=== PATIENT | female | born 1945 | race Caucasian/White ===

== ENCOUNTER 2021-10-12 11:32 | Outpatient (CLI) | payer MEDICARE, SELFPAY ==
--- NOTE | ~2021-10-12 | XR_ITS ---
EXAMINATION: XR chest 2V DATE: 10/12/2021 13:24 INDICATION: History of hypertension TECHNIQUE: PA and lateral views of the chest are obtained. COMPARISON: None available FINDINGS: Cardiomegaly is noted. There is no pleural effusion or pneumothorax. There are nodular opac ities of the right lung. Median sternotomy wires There is moderate thoracic spondylosis. IMPRESSION: 1. Nodular opacities of the right lung which could be infectious or inflammatory. Further evaluation with CT of the chest is recommended. Reviewed, dictated and finalized at location A. IMPRESSION: 1. Nodular opacities of the right lung which could be infectious or inflammator y. Further evaluation with CT of the chest is recommended.
[2021-10-12 14:06] LABS: Hematocrit 46.6 % (37.0-47.0); Hemoglobin 14.2 g/dL (12.0-15.0); Immature Platelet Fraction Pct 20.4 % (0.9-11.2); Mean Corpuscular HGB Conc 30.5 g/dl (32-36); Mean Corpuscular Hemoglobin 29.1 pg (26-34); Mean Corpuscular Volume 95.5 fl (80-100); Mean Platelet Volume 13.2 fl (7.4-10.4); Platelet Count Result 160 k/mm3 (150-375); Red Blood Count 4.88 M/mm3 (4.2-5.4); Red Cell Distribution Width 13.9 % (11.5-14.5); White Blood Count 11.9 K/mm3 (4.5-10.0)
[2021-10-12 14:16] LABS: Bilirubin Urine 1+ (Negative); Blood Urine Negative (Negative); Color Urine Yellow (Yellow); Glucose Urine UA Negative (Negative); INR 1.1; Ketones Urine Trace mg/dL (Negative); Leukocyte Esterase Ur 1+ LEU/UL (Negative); Nitrate Urine Negative (Negative); Protein Urine 2+ mg/dL (Negative); Prothrombin Time 13.4 Seconds (11.1-14.7); Specific Grav Ur 1.025 (1.001-1.035)
[2021-10-12 14:17] LABS: Albumin Level 4.3 g/dL (3.5-5.1); Anion Gap 6 mmol/L (8-16); Blood Urea Nitrogen 13 mg/dL (7-17); Calcium 9.4 mg/dL (8.4-10.2); Carbon Dioxide 32 mmol/L (22-30); Chloride 101 mmol/L (98-107); Estimated Glomerular Filt Rate > 60; Glucose 72 mg/dL (65-110); Partial Thromboplastin Time 32.1 SECONDS (22.3-36.8); Sodium 139 mmol/L (137-145)
[2021-10-12 14:23] LABS: Mucus Urine Rare /lpf; Squamous Epithelial Cell Urine Few /hpf (Few); WBC Urine 21-30 /hpf
[2021-10-12 14:26] LABS: Add Urine Microscopic? YES; Appearance Urine Sl Cloudy (Clear)
[2021-10-12 14:44] LABS: Urine Cotinine NEGATIVE
[2021-10-12 15:06] LABS: Hemoglobin A1C 5.9 % (<5.7)
== END 2021-10-12 11:33 | disposition home or self-care (01) ==
LOC: ANHSURGERY 11:42
PROVIDERS: PCP Family Medicine; Visit Provider Specialist
DX: M17.12 Unilateral primary osteoarthritis, left knee (principal); Z01.818 Encounter for other preprocedural examination; R91.8 Other nonspecific abnormal finding of lung field
CPT/HCPCS: 71046; 80048; 80307; 81001; 82040; 83036; 85027; 85055; 85610; 85730; 86850; 86860; 86870; 86880; 86900; 86901; 86902; 86971; 87077; 87081; 87086; 87088

== ENCOUNTER 2021-10-13 10:28 | Outpatient (CLI) | payer MEDICARE, SELFPAY ==
--- NOTE | ~2021-10-13 | CT_ITS ---
EXAMINATION: CT diagnostic chest wo con DATE: 10/13/2021 10:47 INDICATION: Lung nodules TECHNIQUE: Computed tomography (CT) of the chest was performed without intravenous contrast. The dose -length product (DLP) was 693.31 mGy-cm. Automated exposure control and iterative reconstruction tech nique were employed. COMPARISON: None FINDINGS: There are innumerable nodules scattered throughout all lobes of the lungs measuring up to 7 mm. There is a 2.5 cm groundglass nodule of the right upper lobe with an approximately 6 mm solid co mponent. There is no pleural effusion or pneumothorax. Changes of coronary artery bypass grafting are noted. The heart size is normal. No pathologically enlarged thoracic lymph nodes are identified. The re is a mildly enlarged periportal lymph node. IMPRESSION: 1. Innumerable nodules scattered throughout the lungs. Although findings could reflect infection, met astatic disease is considered more likely. Recommend correlation for any history of malignancy. If ab sent, consider further imaging to evaluate for primary malignancy and/or lung nodule biopsy. Reviewed, dictated and finalized at location A. IMPRESSION: 1. Innumerable nodules scattered throughout the lungs. Although findings could reflect infection, metastatic disease is considered more likely. Recommend mykel elation for any history of malignancy. If absent, consider further imaging to e valuate for primary malignancy and/or lung nodule biopsy.
== END 2021-10-13 10:29 | disposition home or self-care (01) ==
PROVIDERS: PCP Family Medicine; Visit Provider Specialist
DX: R07.9 Chest pain, unspecified (principal); R91.8 Other nonspecific abnormal finding of lung field
CPT/HCPCS: 71250

== ENCOUNTER 2021-10-22 00:30 | Day surgery (SDC) | payer MEDICARE, SELFPAY ==
[2021-10-12 11:49] VITALS: BMI 36.0
--- NOTE | 2021-10-12 12:25 | PC.NURSE ---
Report to the Outpatient Waiting Room, entrance under the green pavilion located off [facility], at time ___06____ on date __10/22/21 . OR Time: . - You and your visitor will be asked a series of questions to screen for COVID 19 for your protection. - A mask is required within the hospital. Preoperative COVID Testing Requirements: No COVID Test needed if: (proof is required; if not received patient will have Rapid Test prior to entry) - Patient has received COVID Vaccine at least 14 days prior to procedure date or - Patient has positive COVID test result within last 90 days of surgery date. COVID Test needed if above criteria is not met If not COVID vaccinated a COVID test must be conducted within 72 hours of surgery and patient is asked to isolate self from time of testing until procedure. You will go to the [facility] for your COVID testing. The [facility] site is located at the corner of [address] [facility]. You will only be called if COVID results are positive and your surgeon may reschedule your elective surgery date. Patients may have clear liquids (water, carbonated beverages, clear teas, apple juice) until 3 hours prior to surgery with a maximum of 20 ounces. - No food from midnight until time of surgery - Infants may have breast milk until 4 hours before surgery, formula 6 hours prior to surgery. - Children will be allowed to drink immediately following surgery. If applicable, please bring a bottle or sippy cup to assist with drinking. Juice, water, soda, and popsicles are readily available. For infants on formula, please bring formula the day of surgery. Pacifiers are allowed. Take the following medications with a SIP of water the morning of surgery: __TRELEGY INHALER,ATENOLOL,CITALOPRAM Medications to discontinue per physician _ASPIRIN 7 DAYS PRE OP PER DR LEZAMA,.ALL VITAMINS AND SUPPLEMENTS 3 DAYS PRE OP Date to take last dose_ASPIRIN 10/14/21 AND VITAMINS/SUPPLEMENTS 10/18/21 Please no make-up, nail chilean, hairspray, perfume, deodorant, or body powder the day of surgery. No jewelry (including any body piercings) or valuables the day of surgery, leave them at home. Please take a shower or bath the night before, or the morning of, surgery with an antibacterial soap. Wear comfortable, loose fitting clothing. Children are encouraged to wear pajamas. - Jewelry must be removed prior to entering the operating room. Rings and piercings that are not removed may be cut off. - The hospital will not accept responsibility for valuables. - Please leave all valuables, including medications, at home the day of surgery. If you are going home after surgery, a licensed laborer driver must drive you home. - NO public transportation without another adult. - We recommend that an adult stay with you for 24 hours following discharge. - We also recommend that you do not drive, make important decision, drink alcoholic beverages, or take any drugs that were not prescribed by your health care provider for at least 24 hours after your discharge time. For Pediatric surgeries, we recommend two adults accompany the child home (only one inside the building at this time). One visitor will be allowed to accompany the patient into the hospital. Patients visitor will be instructed to remain with patient at all times or leave the building. We will allow the visitor to come back to the postoperative area when patient is ready. Follow any additional instructions given to you from your surgeon. VERBAL AND WRITTEN instructions given to _PT AND DAUGHTER TESSA and asked if any additional questions and then verbalized understanding. Patient advised to call surgeon office or pre surgery nurse liaison [phone] if any additional questions.
[2021-10-12 13:00] VITALS: BP 170/64; PULSE 61; RESP 18; TEMP 36.6; O2SAT 95
--- NOTE | 2021-10-21 15:21 | WPDANESEPPF ---
Anes - Initial Pre Proc Eval Procedure: Operation Date: 10/22/21 07:30 Proposed Procedures p Left Total Knee Arthroplasty - Silvestre Stacy MD Date/Time: 10/21/21 15:21 Surgeon: Silvestre Stacy MD Pre Op Diagnosis: left knee oa Patient Data Age: 76 Gender: F Height: 1.65 m Weight: 98.2 kg Last Vital Signs Temp 97.9 F 10/12/21 13:00 Pulse 61 10/12/21 13:00 Resp 18 10/12/21 13:00 BP 170/64 H 10/12/21 13:00 Pulse Ox 95 10/12/21 13:00 Allergies Allergy/AdvReac Type Severity Reaction Status Date / Time chlorhexidine Allergy Mild RASH Verified 10/12/21 11:52 Penicillins Allergy Mild RASH Verified 10/12/21 11:52 Sulfa (Sulfonamide Allergy Mild RED SKIN Verified 10/12/21 11:52 Antibiotics) AND EYES Home Medications Medication Instructions Recorded Confirmed Type Multi Vitamin 1 tab-cap PO DAILY 10/12/21 10/22/21 History acetaminophen [Tylenol Extra 500 mg PO Q6H PRN 10/12/21 10/22/21 History Strength] albuterol sulfate [Ventolin HFA] 2 puff INHALATION PRN PRN 10/12/21 10/22/21 History aspirin [Adult Low Dose Aspirin] 81 mg PO DAILY 10/12/21 10/22/21 History atenolol 100 mg PO DAILY 10/12/21 10/22/21 History atorvastatin 80 mg PO DAILY 10/12/21 10/22/21 History citalopram 20 mg PO DAILY 10/12/21 10/22/21 History frgfdofdekf-piuxwgfcn-dyitnlzv 1 inh INHALATION DAILY 10/12/21 10/22/21 History [Trelegy Ellipta] furosemide 40 mg PO PRN PRN 10/12/21 10/22/21 History glimepiride 2 mg PO DAILY 10/12/21 10/22/21 History lisinopril 20 mg PO DAILY 10/12/21 10/22/21 History loratadine [Claritin] 10 mg PO DAILY 10/12/21 10/22/21 History magnesium 400 mg PO DAILY 10/12/21 10/22/21 History metformin 500 mg PO BID 10/12/21 10/22/21 History omega-3 fatty acids [Fish Oil] 1,000 mg PO BID 10/12/21 10/22/21 History potassium chloride 10 meq PO 3XW 10/12/21 10/22/21 History Patient hx anesthesia problems: none Family hx anesthesia problems: none Results Review: All pre-operative results and documents have been reviewed as part of the pre-operative evaluation. [facility] Past Medical History Medical History (Updated 10/21/21 @ 15:20 by Chad Bo MD) Congestive heart failure (CHF) Diabetes Hyperlipidemia Hypertension Surgical History Surgical History (Updated 10/21/21 @ 15:18 by Chad Bo MD) S/P CABG x 3 Social History Social History Smoking packs per day: 0.5 Smoking cigarettes per day: 10.0 Years smoked: 30 Smoking pack-years: 15.00 Smoking status: Former smoker Tobacco type: cigarettes Smoking end date: 07/04/14 Living arrangements: alone Spiritual care concerns: No Anes - Eval Final PreProcedure Day of Procedure 10/21/21 15:21 Patient weight: obese Heart: regular rate and rhythm Lungs: clear to auscultation Airway: Mallampati scale class III Neurological: alert and oriented Last oral intake: >/= 8 hours ASA classification: III Emergent: no Anesthetic plan: proceed Anesthesia type and monitoring: general ETT and standard monitoring Results Review: All pre-operative results and documents have been reviewed as part of the pre-operative evaluation. Informed Consent: The patient's anesthetic plan and its attendant risks and benefits were discussed with the patient/family/POA. Questions were solicited and answers provided to the satisfaction of the patient/family/POA.
[2021-10-22] VITALS (14 sets, daily range): BP systolic 106–158; BP diastolic 41–82; PULSE 59–84; RESP 12–22; TEMP 36.4–37.4; O2SAT 92–98; BMI 36.2
--- NOTE | ~2021-10-22 | XR_ITS ---
EXAMINATION: XR knee LT 2V EXAM DATE: 10/22/2021 11:07 INDICATION: Left knee arthroplasty. TECHNIQUE: Portable frontal, crosstable lateral projections left knee obtained immediately following arthroplasty performed by orthopedic surgeon Silvestre Stacy MD. FINDINGS: Patient is status post total knee arthroplasty. The orthopedic hardware is in expected po sition. There is small amount of subcutaneous gas, gas within the knee joint space. Overlying soft tissue swelling. Correlate with procedure note. IMPRESSION: Status post total left knee arthroplasty. Reviewed, dictated and finalized at location A.
[2021-10-22] MEDS: LACTATED RINGERS 1,000 ML 30 ML IV CONT (06:48)
[2021-10-22] MEDS: ACETAMINOPHEN 500 MG TABLET 1000 MG PO (06:49)
[2021-10-22] MEDS: TRANEXAMIC ACID 1,000MG/ISO100 1,000 MG/100 ML BAG 200 MG IVPB (06:50)
--- NOTE | 2021-10-22 07:10 | WPDHPUPDATE1 ---
History and Physical Update Update Date/Time: 10/22/21 07:10 History and Physical has been reviewed, including an updated exam of the patient. There are NO changes in the patient's condition. Risks, benefits, and alternatives have been discussed and questions answered. Patient agrees to proceed with procedure.
--- NOTE | 2021-10-22 07:19 | WPDANESPNB ---
Anes - Peripheral Nerve Block Date/Time: 10/22/21 07:19 I have discussed with the patient/family/POA the placement of a peripheral nerve block for post-operative pain management, including associated risks, benefits, complications, and side effects. Alternative methods of post-operative analgesia were detailed. Questions were solicited and answers provided to the satisfaction of the patient/family/POA. Time-Out: A pre-procedural Time-Out was completed immediately before starting the procedure and confirmed: Patient Identification, Site, Procedure, Patient Position and the Availability of Requisite Equipment. Clinical Indications: Acute post-operative pain management requested by the operative surgeon. Nerve Block Insertion Note Anes-nerve block: adductor canal left Patient position: supine Skin prep: chlorhexidine Needle: 22 gauge, stimulating, insulated echogenic needle. Needle length: 80 mm Technique: ultrasound Injectate: bupivacaine 0.5% with epi 5 mcg/ml (30cc - no epi) Observations: tolerated well Complications: none Procedure start time:: 729 Procedure end time:: 732
[2021-10-22] MEDS: VANCOMYCIN HCL 1,000 MG VIAL 1000 MG TOPICAL (07:36)
[2021-10-22] MEDS: CLINDAMYCIN 900 MG/D5W 50 ML 900 MG/50 ML PIGGYBACK 50 MG IVPB (07:36)
[2021-10-22 07:38] LABS: Glucose Point of Care 113 mg/dl (65-105)
--- NOTE | 2021-10-22 11:07 | W.PM.PROC2 ---
Procedure Note - Detailed Date of Procedure 10/22/21 Pre-op Diagnosis left knee osteoarthritis severe Post-op Diagnosis Same Procedure Performed Total knee replacement Surgeon Silvestre Stacy MD Rope Tow Operator Yesi Anesthesia General and Regional Indications Long hx of knee pain and OA with deformity. Findings severe arthritis. Description of Procedure The patient was identified and brought to the operating room and placed into supine position on the operating room table. The sidra that I had made on her left knee was visible. She was position on the table to allow for a total knee arthroplasty. We used the triathlon system from [employer]. She had received appropriate IV antibiotics as necessary for the proposed procedure prior to making the incision. She was then sterilely prepped and draped in the usual fashion. I outlined the skin landmarks and then ish a medial parapatellar longitudinal approach incision on her skin. An Esmarch bandage was used to exsanguinated the left lower extremity and the tourniquet was raised to 300 mmHg pressure. Longitudinal incision was then made through the skin. We started just medial to the tibial tubercle went up over the medial 1/2 of the patella and then proximally along the center of the quadriceps tendon insertion. The arthrotomy was then identified and marked on the tissues. Efraín's the mixture was injected into the quadriceps and the medial retinaculum of the patella and distally. 40 cc were used at this time. An arthrotomy was then made. And we were able to easily sublux the patella laterally. The fat pad was carefully removed. The medial meniscus was transected anteriorly and then a medial exposure was performed which allowed excellent visualization of the medial compartment and also preserve the medial meniscus. Laterally the exposure was developed so as to expose the lateral compartment well. Retractors were placed medially and laterally. The medial retractor was specifically placed so as to protect the MCL which can be at risk during this procedure. A blunt Hohmann was used laterally which helped to retract the patella and protect the patellar tendon. Excellent exposure was achieved. The tourniquet was released at this point and hemostasis was confirmed with electrocautery. The total tourniquet time was approximately 12 minutes. The actual time is on the operative record. The tourniquet was not utilized throughout the remainder of the procedure. A patellar osteophytectomy was then performed. The marginal osteophytes around the patella were removed using a rongeur until the patella was smooth. The articular cartilage on the patella was with chondromalacia but the decision was made not to replace the patella in this case. During the exposure a patellar prepatellar bursectomy was performed. Hypertrophic prepatellar bursa was removed using Bovie electric cautery. The femoral insertion hole was then made just anterior to the PCL attachment. A trocar tipped drill was placed about a cm anterior to the PCL and directed down the shaft of the femur. The flexible guidewire was then placed into the femoral shaft. Until the femoral guide was flush with the femoral condyles. We then placed the anterior cutting guide on the flexible IM campos. We had set this guide for a 10 mm resection as the patient had a significant flexion contracture. We then secured the cutting guide with 2 pins and a checked this with the Derrek wings confirming that approximately 10 mm of distal femoral condyle would be removed. The anterior cut was then made. We assessed it and it was flat. The femoral sizing guide was then utilized. I confirmed that the flanges were underneath the posterior condyles and were flushed. The epicondylar line was coincident with the guide. Whitesides line was coincident with the guide. A 3 degree external rotation was judged to be the best. Using the Derrek wings we determined that a 2. Femur was t
[2021-10-22 11:30] LABS: Glucose Point of Care 166 mg/dl (65-105)
--- NOTE | 2021-10-22 12:26 | PM.IMCN ---
Assessment and Plan Assessment and plan (1) Congestive heart failure (CHF): Code(s): I50.9 - Heart failure, unspecified Status: Inactive Assessment and Plan: Monitor closely Resume diuretic Avoid fluid overload (2) Diabetes: Code(s): E11.9 - Type 2 diabetes mellitus without complications Status: Inactive Assessment and Plan: Probably type 2 Insulin sliding scale Hold oral medication (3) Hyperlipidemia: Code(s): E78.5 - Hyperlipidemia, unspecified Status: Inactive Assessment and Plan: Continue statin (4) Hypertension: Code(s): I10 - Essential (primary) hypertension Status: Inactive Assessment and Plan: Continue lisinopril and atenolol Resume aspirin once okay with surgery (5) Loose left total knee arthroplasty: Code(s): T84.033A - Mechanical loosening of internal left knee prosthetic joint, initial encounter Status: Acute Assessment and Plan: DVT prophylaxis Pain control HPI Data of Consult Consult date: 10/22/21 Requesting Physician: Silvestre Stacy MD Primary Care Provider: Adria MatuteMD Consult Narrative Narrative: Lina Haynes is a 76 year old female with past medical history of CHF on Lasix hypertension on lisinopril and metoprolol diabetes on metformin and glipizide presented to the hospital for elective left knee arthroplasty patient was complaining of left knee pain failed medical therapy worsening gradually limiting daily living activities patient tolerated procedure well medicine was consulted for medical management of hypertension diabetes CHF Review of Systems Review of Systems: All systems reviewed & are unremarkable except as noted in HPI and below PMFSH Past Medical History Medical History (Updated 10/22/21 @ 12:29 by Aria Guaman MD) Congestive heart failure (CHF) Diabetes Hyperlipidemia Hypertension Surgical History Surgical History (Updated 10/21/21 @ 15:18 by Chad Bo MD) S/P CABG x 3 Social History Social History Smoking packs per day: 0.5 Smoking cigarettes per day: 10.0 Years smoked: 30 Smoking pack-years: 15.00 Smoking status: Former smoker Tobacco type: cigarettes Smoking end date: 07/04/14 Living arrangements: alone Gender identity (if verbalized by the patient): Female Sexual Orientation (if Verbalized by the Patient): Straight or Heterosexual Spiritual care concerns: No Meds Home Medications and Allergies Home Medications Medication Instructions Recorded Confirmed Type Multi Vitamin 1 tab-cap PO DAILY 10/12/21 10/22/21 History acetaminophen [Tylenol Extra 500 mg PO Q6H PRN 10/12/21 10/22/21 History Strength] albuterol sulfate [Ventolin HFA] 2 puff INHALATION PRN PRN 10/12/21 10/22/21 History aspirin [Adult Low Dose Aspirin] 81 mg PO DAILY 10/12/21 10/22/21 History atenolol 100 mg PO DAILY 10/12/21 10/22/21 History atorvastatin 80 mg PO DAILY 10/12/21 10/22/21 History citalopram 20 mg PO DAILY 10/12/21 10/22/21 History ygtjcvmtgia-qzbxanrmb-fvfclxnr 1 inh INHALATION DAILY 10/12/21 10/22/21 History [Trelegy Ellipta] furosemide 40 mg PO PRN PRN 10/12/21 10/22/21 History glimepiride 2 mg PO DAILY 10/12/21 10/22/21 History lisinopril 20 mg PO DAILY 10/12/21 10/22/21 History loratadine [Claritin] 10 mg PO DAILY 10/12/21 10/22/21 History magnesium 400 mg PO DAILY 10/12/21 10/22/21 History metformin 500 mg PO BID 10/12/21 10/22/21 History omega-3 fatty acids [Fish Oil] 1,000 mg PO BID 10/12/21 10/22/21 History potassium chloride 10 meq PO 3XW 10/12/21 10/22/21 History Allergies Allergy/AdvReac Type Severity Reaction Status Date / Time chlorhexidine Allergy Mild RASH Verified 10/12/21 11:52 Penicillins Allergy Mild RASH Verified 10/12/21 11:52 Sulfa (Sulfonamide Allergy Mild RED SKIN Verified 10/12/21 11:52 Antibiotics) AND EYES Vital Signs Vital Signs - 24 hr 10/22/21 07:01 10/22/21 11:00
--- NOTE | 2021-10-22 12:42 | PC.NURSE ---
This patient, Lina Haynes, was admitted to 2 Medical Room 259-. Patient/family oriented to hospital policies and general routines including ID bracelet, bed and alarms, visiting hours, pain management, procedures, bathroom and other care routines, personal items, smoking policy, room service/diet, and visiting hours. Information on how to activate the Rapid Response Team has been discussed. Patient/Family are encouraged to report perceived risks to care and to ask questions if they do not understand what they are told or what they should do.
[2021-10-22] MEDS: ATORVASTATIN 40 MG TABLET 80 MG PO (13:38)
[2021-10-22] MEDS: lisinopriL 20 MG TABLET PO (13:38)
[2021-10-22] MEDS: SODIUM CHLORIDE 0.9% IV 1,000 ML 125 ML IV CONT (13:38)
[2021-10-22] MEDS: LORATADINE 10 MG TABLET PO (13:39)
[2021-10-22] MEDS: MAGNESIUM OXIDE 400 MG TABLET PO (13:39)
[2021-10-22 13:44] LABS: Glucose Point of Care 190 mg/dl (65-105)
[2021-10-22] MEDS: HYDROcodone/acetaminophen (*CRX) 5-325 MG TABLET 1 TAB PO ×3 (14:24→23:09)
[2021-10-22] MEDS: CLINDAMYCIN 600 MG/D5W 50 ML 600 MG/50 ML PIGGYBACK 100 MG IVPB ×2 (15:56→23:30)
[2021-10-22] MEDS: SODIUM CHLORIDE 0.9% IV 500 ML IV CONT (15:56)
[2021-10-22 16:13] LABS: Hematocrit 38.3 % (37.0-47.0); Hemoglobin 11.8 g/dL (12.0-15.0); Mean Corpuscular HGB Conc 30.8 g/dl (32-36); Mean Corpuscular Hemoglobin 29.2 pg (26-34); Mean Corpuscular Volume 94.8 fl (80-100); Mean Platelet Volume 12.7 fl (7.4-10.4); Platelet Count Result 129 k/mm3 (150-375); Red Blood Count 4.04 M/mm3 (4.2-5.4); White Blood Count 13.3 K/mm3 (4.5-10.0)
[2021-10-22] MEDS: metFORMIN HCL 500 MG TABLET PO (16:19)
[2021-10-22] MEDS: SENNA/DOCUSATE SODIUM TABLET 2 TAB PO (16:19)
[2021-10-22] MEDS: OMEGA 3 POLYUNSAT FATTY ACIDS 1 GM CAP PO (16:19)
[2021-10-22 16:37] LABS: Glucose Point of Care 187 mg/dl (65-105)
[2021-10-22] MEDS: ASPIRIN 325 MG ENTERIC TABLET PO (20:15)
[2021-10-22 20:22] LABS: Glucose Point of Care 202 mg/dl (65-105)
[2021-10-23] VITALS (7 sets, daily range): BP systolic 113–129; BP diastolic 42–52; PULSE 63–70; RESP 16–18; TEMP 36.4–36.8; O2SAT 91–94
[2021-10-23 05:51] LABS: Basophils Percent Auto 0.3 % (0.2-1.2); Eosinophils Percent Auto 0.4 % (0-4.4); Hematocrit 37.3 % (37.0-47.0); Hemoglobin 11.3 g/dL (12.0-15.0); Immature Granulocyte Absolute 0.05 K/mm3 (0.00-0.031); Immature Granulocyte Percent A 0.5 % (0-0.5); Immature Platelet Fraction Pct 18.3 % (0.9-11.2); Lymphocytes Absolute Auto 1.64 K/mm3 (0.9-3.2); Lymphocytes Percent Auto 15.6 % (18.3-44.2); Mean Corpuscular HGB Conc 30.3 g/dl (32-36); Mean Corpuscular Volume 95.6 fl (80-100); Mean Platelet Volume 12.9 fl (7.4-10.4); Monocytes Absolute Auto 1.5 K/mm3 (0.1-0.6); Monocytes Percent Auto 14.2 % (2.6-8.5); Neutrophils Absolute Auto 7.3 K/mm3 (1.3-6.7); Platelet Count Result 130 k/mm3 (150-375); Red Cell Distribution Width 14.3 % (11.5-14.5); White Blood Count 10.5 K/mm3 (4.5-10.0)
[2021-10-23 06:05] LABS: Anion Gap 5 mmol/L (8-16); Blood Urea Nitrogen 15 mg/dL (7-17); Calcium 8.2 mg/dL (8.4-10.2); Carbon Dioxide 30 mmol/L (22-30); Chloride 101 mmol/L (98-107); Estimated CRCL calculation 63 ml/min; Estimated Glomerular Filt Rate > 60; Glucose 116 mg/dL (65-110); Potassium 4.1 mmol/L (3.4-5.0); Sodium 136 mmol/L (137-145)
[2021-10-23] MEDS: HYDROcodone/acetaminophen (*CRX) 5-325 MG TABLET 1 TAB PO ×3 (06:19→16:04)
[2021-10-23 07:34] LABS: Glucose Point of Care 116 mg/dl (65-105)
[2021-10-23] MEDS: ACETAMINOPHEN 500 MG TABLET PO (07:59)
[2021-10-23] MEDS: CYCLOBENZAPRINE HCL 10 MG TABLET PO (07:59)
[2021-10-23] MEDS: GLIMEPIRIDE 2 MG TABLET PO (08:00)
[2021-10-23] MEDS: CLINDAMYCIN 600 MG/D5W 50 ML 600 MG/50 ML PIGGYBACK 100 MG IVPB (08:00)
[2021-10-23] MEDS: lisinopriL 20 MG TABLET PO (08:00)
[2021-10-23] MEDS: MULTIVITAMINS THERAPEUTIC TAB (*BKC) 1 TABLET PO (08:00)
[2021-10-23] MEDS: SENNA/DOCUSATE SODIUM TABLET 2 TAB PO (08:01)
[2021-10-23] MEDS: ASPIRIN 325 MG ENTERIC TABLET PO (08:01)
[2021-10-23] MEDS: LORATADINE 10 MG TABLET PO (08:01)
[2021-10-23] MEDS: metFORMIN HCL 500 MG TABLET PO ×2 (08:01→16:03)
[2021-10-23] MEDS: OMEGA 3 POLYUNSAT FATTY ACIDS 1 GM CAP PO ×2 (08:01→16:04)
[2021-10-23] MEDS: atenoloL 50 MG TABLET 100 MG PO (08:01)
[2021-10-23] MEDS: POTASSIUM CHLORIDE 10 MEQ TABLET.ER PO (08:01)
[2021-10-23] MEDS: ATORVASTATIN 40 MG TABLET 80 MG PO (08:02)
[2021-10-23] MEDS: MAGNESIUM OXIDE 400 MG TABLET PO (08:03)
--- NOTE | 2021-10-23 08:18 | PM.PNORT ---
Progress Note: A&P Additional Plan Assessment: Postoperative day 1 status post left total knee arthroplasty with good progress. Plan: Continue DVT prophylaxis. Physical therapy to see. I encouraged ankle pumps and elevation of her left leg. I encouraged her to keep a pillow under her calf and Achilles so as to encourage full extension. She will likely require a short-term nursing facility. Continue supportive medical care. Medicine is aware and should continue to monitor her blood pressure. Time Spent With Patient Time with patient: 15 - 25 minutes Subjective Subjective Date/Time Seen: 10/23/21 08:18 Exam Extrem: Other: The patient was seen postoperative day 1. She was sitting in a chair next to the bed. She was complaining of some posterior thigh pain. Her vital signs are stable except for some low diastolic blood pressures. Medicine is aware. On physical examination her dressing is intact with no drainage. Her calf was nontender. She has some distal pitting edema 2+ but this was present prior to her surgery. Her white count was slightly elevated at 13.3. Her H&H was 11.8 and 38.3. She was sitting with her knee at about 80? of flexion. X-rays of her left knee were reviewed and she has a well placed total knee implant. On the lateral x-ray she is in near full extension. The alignment is near anatomical. Objective Data Vital Signs Vital Signs: Vital Signs - 24 hr 10/22/21 11:00 10/22/21 11:15 10/22/21 11:30 Temperature 37.4 C Pulse Rate 60 65 84 Respiratory Rate 13 12 22 H Blood Pressure 116/45 L 115/46 L 150/60 H Pulse Oximetry 97 98 96 10/22/21 11:45 10/22/21 12:00 10/22/21 12:15 Temperature Pulse Rate 74 71 76 Respiratory Rate 20 18 20 Blood Pressure 117/68 142/59 H 137/61 Pulse Oximetry 95 96 96 10/22/21 12:48 10/22/21 12:55 10/22/21 13:25 Temperature 36.8 C 36.8 C 36.4 C Pulse Rate 64 65 62 Respiratory Rate 20 20 20 Blood Pressure 138/49 L 145/53 H 129/67 Pulse Oximetry 92 95 96 10/22/21 14:30 10/22/21 18:10 10/22/21 20:00 Temperature 36.4 C 36.7 C Pulse Rate 61 61 Respiratory Rate 18 16 Blood Pressure 106/44 L 114/41 L Pulse Oximetry 92 94 94 10/22/21 20:30 10/23/21 00:40 10/23/21 04:30 Temperature 36.4 C 36.4 C L 36.8 C Pulse Rate 59 L 63 68 Respiratory Rate 18 16 16 Blood Pressure 107/47 L 124/47 L 129/43 L Pulse Oximetry 93 91 92 10/23/21 07:47 10/23/21 08:01 Temperature Pulse Rate 70 70 Respiratory Rate 18 Blood Pressure 128/47 L Pulse Oximetry 92 Intake/Output Intake/Output: Intake & Output 10/20/21 10/21/21 10/22/21 10/23/21 23:59 23:59 23:59 23:59 Intake Total 1580 350 Output Total 575 Balance 1580 -225 Meds/Results Medications: Active Medications Generic Name Dose Route Start Last Admin Trade Name Freq PRN Reason Stop Dose Admin Acetaminophen 500 mg 10/22/21 12:25 10/23/21 07:59 Acetaminophen 500 Mg Tablet PO 500 mg Q6H PRN Administration PAIN RATED 1-3 Hydrocodone Bitart/Acetaminophen 1 tab 10/22/21 12:25 10/23/21 06:19 Hydrocodone/Acetaminophen (*Crx) 5-325 Mg Tablet PO 1 tab Q4H PRN Administration Pain Rated 4-6 Albuterol 2 puff 10/22/21 12:25 Albuterol Sulfate (*Sp) Aerosol 1 Puff INHALATION PRN PRN Shortness Of Breath Aspirin 325 mg 10/22/21 21:00 10/23/21 08:01 Aspirin 325 Mg Enteric Tablet PO 325 mg Q12HR DAVID Administration Atenolol 100 mg 10/23/21 09:00 10/23/21 08:01 Atenolol 50 Mg Tablet PO 100 mg DAILY DAVID Administration Atorvastatin Calcium 80 mg 10/22/21 12:50 10/23/21 08:02 Atorvastatin 40 Mg Tablet PO 80 mg DAILY DAVID Administration Cyclobenzaprine HCl 10 mg 10/22/21 12:25 10/23/21 07:59 Cyclobenzaprine Hcl 10 Mg Tablet PO 10 mg Q8H PRN Administration Spasms Fish Oil 1 gm 10/22/21 17:00 10/23/21 08:01 [place] 3 Polyunsat Fatty Acids 1 Gm Cap PO 1 gm BID DAVID Administration Fluticasone/Umec
[2021-10-23] MEDS: FLUTICASONE/UMECLIDIN/VILANTER 100-62.5-25 MCG ELLIPTA 1 PUFF INHALATION (08:26)
--- NOTE | 2021-10-23 08:52 | WPDANESPN ---
Anes - Prog Note Post-Op Date/Time: 10/23/21 08:52 Cardiovascular status: normal Respiratory status: normal Airway patency: baseline Mental status: baseline Post-Op hydration status: normal Vital Signs: Last Vital Signs Temp 98.2 F 10/23/21 04:30 Pulse 70 10/23/21 08:01 Resp 18 10/23/21 07:47 BP 128/47 L 10/23/21 07:47 Pulse Ox 94 10/23/21 08:26 Pain Score (VAS): 3 I/O: Intake & Output 10/22/21 10/23/21 10/23/21 23:59 07:59 15:59 Intake Total 290 350 240 Output Total 575 Balance 290 -225 240 Laboratory Tests 10/23/21 05:24 10/23/21 05:24 10/22/21 10/22/21 10/22/21 11:00 13:41 16:04 WBC 13.3 H RBC 4.04 L Hgb 11.8 L Hct 38.3 MCV 94.8 MCH 29.2 MCHC 30.8 L RDW 14.0 Plt Count 129 L MPV 12.7 H Immature Gran % (Auto) Neut % (Auto) Lymph % (Auto) Chambers % (Auto) Eos % (Auto) Baso % (Auto) Lymph # (Auto) Chambers # (Auto) Eos # (Auto) Baso # (Auto) Abs Immat Gran (auto) Absolute Neuts (auto) Absolute Nucleated RBC Nucleated RBC % % Immature Plt Fraction Sodium Potassium Chloride Carbon Dioxide Anion Gap BUN Creatinine Estim Creat Clear Calc Estimated GFR Glucose POC Capillary Glucose 166 H 190 H Calcium 10/22/21 10/22/21 10/23/21 16:33 20:15 05:24 WBC 10.5 H RBC 3.90 L Hgb 11.3 L Hct 37.3 MCV 95.6 MCH 29.0 MCHC 30.3 L RDW 14.3 Plt Count 130 L MPV 12.9 H Immature Gran % (Auto) 0.5 Neut % (Auto) 69.0 Lymph % (Auto) 15.6 L Chambers % (Auto) 14.2 H Eos % (Auto) 0.4 Baso % (Auto) 0.3 Lymph # (Auto) 1.64 Chambers # (Auto) 1.5 H Eos # (Auto) 0.0 Baso # (Auto) 0.0 Abs Immat Gran (auto) 0.05 H Absolute Neuts (auto) 7.3 H Absolute Nucleated RBC 0.0 Nucleated RBC % 0.0 % Immature Plt Fraction 18.3 H Sodium Potassium Chloride Carbon Dioxide Anion Gap BUN Creatinine Estim Creat Clear Calc Estimated GFR Glucose POC Capillary Glucose 187 H 202 H Calcium 10/23/21 10/23/21 05:24 07:27 WBC RBC Hgb Hct MCV MCH MCHC RDW Plt Count MPV Immature Gran % (Auto) Neut % (Auto) Lymph % (Auto) Chambers % (Auto) Eos % (Auto) Baso % (Auto) Lymph # (Auto) Chambers # (Auto) Eos # (Auto) Baso # (Auto) Abs Immat Gran (auto) Absolute Neuts (auto) Absolute Nucleated RBC Nucleated RBC % % Immature Plt Fraction Sodium 136 L Potassium 4.1 Chloride 101 Carbon Dioxide 30 Anion Gap 5 L BUN 15 Creatinine 0.80 Estim Creat Clear Calc 63 Estimated GFR > 60 Glucose 116 H POC Capillary Glucose 116 H Calcium 8.2 L Post-procedural complaints: none Patient Feedback: Patient satisfied with anesthetic care.
--- NOTE | 2021-10-23 09:44 | PM.IMCN ---
Assessment and Plan Assessment and plan (1) Arthritis of left knee: Code(s): M17.12 - Unilateral primary osteoarthritis, left knee Status: Acute Assessment and Plan: -POD #1 s/p left total knee arthroplasty -management per primary service, orthopedics -PT/OT -needs rehab placement at discharge (2) Hypertension: Code(s): I10 - Essential (primary) hypertension Status: Acute Assessment and Plan: -stable -continue lisinopril and atenolol -continue monitoring (3) Hyperlipidemia: Code(s): E78.5 - Hyperlipidemia, unspecified Status: Acute Assessment and Plan: -continue atorvastatin (4) Diabetes: Code(s): E11.9 - Type 2 diabetes mellitus without complications Status: Acute Assessment and Plan: -serum glucose was 116 this morning -continue glimepiride and metformin -will initiate accuchecks ACHS, low dose SSI, and hypoglycemic protocol HPI Data of Consult Consult date: 10/23/21 Requesting Physician: Silvestre Stacy MD Primary Care Provider: Adria Matute, Consult Narrative Narrative: Lina Haynes is a 76 year old female w/ hx of HTN, HLD, DM, and COPD, admitted s/p L knee replacement. Hospitalist service was consulted for medical management. Pt has pain in her left knee but otherwise has no complaints. Surgery went well yesterday with no immediate complications. Her HTN and DM are well managed with her current medication regiments. No cp/sob/N/V/abd pain. Does have some mild LE edema but this is chronic. No calf pain. Review of Systems Review of Systems: All systems reviewed & are unremarkable except as noted in HPI and below PMFSH Past Medical History Medical History (Updated 10/23/21 @ 09:50 by Shelia Roche PA-C) Congestive heart failure (CHF) Diabetes Hyperlipidemia Hypertension Surgical History Surgical History (Updated 10/23/21 @ 09:47 by Shelia Roche PA-C) History of total knee arthroplasty S/P CABG x 3 Social History Social History Smoking packs per day: 0.5 Smoking cigarettes per day: 10.0 Years smoked: 30 Smoking pack-years: 15.00 Smoking status: Former smoker Tobacco type: cigarettes Second hand tobacco smoke exposure: Yes Smoking end date: 07/04/12 Alcohol intake: former Substance use: never Living arrangements: alone Gender identity (if verbalized by the patient): Female Sexual Orientation (if Verbalized by the Patient): Straight or Heterosexual Spiritual care concerns: No Meds Home Medications and Allergies Home Medications Medication Instructions Recorded Confirmed Type Multi Vitamin 1 tab-cap PO DAILY 10/12/21 10/22/21 History acetaminophen [Tylenol Extra 500 mg PO Q6H PRN 10/12/21 10/22/21 History Strength] albuterol sulfate [Ventolin HFA] 2 puff INHALATION PRN PRN 10/12/21 10/22/21 History aspirin [Adult Low Dose Aspirin] 81 mg PO DAILY 10/12/21 10/22/21 History atenolol 100 mg PO DAILY 10/12/21 10/22/21 History atorvastatin 80 mg PO DAILY 10/12/21 10/22/21 History citalopram 20 mg PO DAILY 10/12/21 10/22/21 History qmvhuynawwg-mufsztzrh-oaqtadfw 1 inh INHALATION DAILY 10/12/21 10/22/21 History [Trelegy Ellipta] furosemide 40 mg PO PRN PRN 10/12/21 10/22/21 History glimepiride 2 mg PO DAILY 10/12/21 10/22/21 History lisinopril 20 mg PO DAILY 10/12/21 10/22/21 History loratadine [Claritin] 10 mg PO DAILY 10/12/21 10/22/21 History magnesium 400 mg PO DAILY 10/12/21 10/22/21 History metformin 500 mg PO BID 10/12/21 10/22/21 History omega-3 fatty acids [Fish Oil] 1,000 mg PO BID 10/12/21 10/22/21 History potassium chloride 10 meq PO 3XW 10/12/21 10/22/21 History Allergies Allergy/AdvReac Type Severity Reaction Status Date / Time chlorhexidine Allergy Mild RASH Verified 10/12/21 11:52 Penicillins Allergy Mild RASH Verified 10/12/21 11:52 Sulfa (Sul
[2021-10-23 11:32] LABS: Glucose Point of Care 92 mg/dl (65-105)
--- NOTE | 2021-10-23 14:05 | PCCCNOTE ---
On 10/23/21, the student, [Vannesa Aly ], provided care and completed [facility] documentation on this patient. I have reviewed the student's documentation and agree with the findings.
--- NOTE | 2021-10-23 15:54 | PC.NURSE ---
message left with daughter per pt's request about pending discharge
[2021-10-23 16:03] LABS: Glucose Point of Care 84 mg/dl (65-105)
== END 2021-10-23 17:41 | disposition home or self-care (01) ==
LOC: ANHSURGERY 05:56 → ANH2MED 13:01
PROVIDERS: Internal Medicine; PCP Family Medicine; Visit Provider Specialist
PROC: (CPT 27447; principal; 2021-10-22 07:30)
DX: M17.12 Unilateral primary osteoarthritis, left knee (principal); G89.18 Other acute postprocedural pain; E78.5 Hyperlipidemia, unspecified; I11.0 Hypertensive heart disease with heart failure; I50.9 Heart failure, unspecified; E11.9 Type 2 diabetes mellitus without complications; J44.9 Chronic obstructive pulmonary disease, unspecified; Z79.51 Long term (current) use of inhaled steroids; Z79.82 Long term (current) use of aspirin; Z79.84 Long term (current) use of oral hypoglycemic drugs; Z95.1 Presence of aortocoronary bypass graft; Z87.891 Personal history of nicotine dependence; E66.9 Obesity, unspecified; Z68.36 Body mass index [BMI] 36.0-36.9, adult
CPT/HCPCS: 27447; 64447; 36415; 73560; 80048; 82948; 85025; 85027; 85055; 94640; 97110; 97116; 97161; 97165; 97530; 97535; A9270; C1713; C1776; J0171; J1100; J1170; J1885; J2250; J2270; J2405; J2704; J2710; J2795; J3010; J3370; J7030; J7040; J7120